=== PATIENT | female | born 1995 | race African-American/Black ===

== ENCOUNTER 2016-04-09 11:13 | Emergency (ER) | payer OTHER ==
[~2016-04-09] VITALS: Ht 160 cm; Wt 68.0 kg
[~2016-04-09 11:13] MED LIST: MACR100C2 PO
[2016-04-09 11:15] VITALS: BP 100/57; PULSE 70; RESP 16; TEMP 98; O2SAT 100
[2016-04-09 11:46] LABS: BACTERIA, URINE MANY /hpf; BLOOD, URINE TRACE (NEG); COMMENT (UR) CULTURE INDICATED; CULTURE IF INDICATED CULTURE INDICATED; GLUCOSE,URINE NEG (NEG); KETONE, URINE NEG (NEG); MUCUS URINE MOD /lpf (OCC); PH, URINE 5.5 (5.0-8.5); RENAL EPITHELIAL CELLS <1 /hpf; SQUAMOUS EPITHELIAL CELL URINE 4 /hpf (0-5); TRANSITIONAL EPI CELLS, URINE <1 /hpf; URINE COLOR YELLOW (YELLW/STRAW)
[2016-04-09 11:47] LABS: NITRITE,URINE POS (NEG)
[2016-04-09] MEDS ORDERED: MACR100C2 PO (12:12)
--- NOTE | 2016-04-09 12:13 | PD ---
HPI Chief Complaint: Complaint Time Seen by Provider: 11:36 Travel History International Travel<30 days: No Contact w/Intl Traveler<30days: No Traveled to known affect area: No History of Present Illness HPI Patient is a 21 year old female who comes in complaining of dysuria, frequency and urgency. She says her urine has been cloudy and has an odor, similar to previous infections she has had. She denies any vaginal discharge or abdominal pain. She says her LMP was Dec 16. She denies nausea or vomiting. She denies fever or chills. PFS Past Medical History Diminished Hearing: No Immunizations Current: Yes Tetanus Vaccination: Unknown Influenza Vaccination: No ?: Not LMP: 03/04/2016 : 0 Social History Alcohol Use: No Tobacco Use: No Substance Use: No Allergies-Medications (Allergen,Severity, Reaction): Coded Allergies: No Known Allergies (Verified , 04/09/16) Reported Meds & Prescriptions Reported Meds & Active Scripts Active Macrobid (Nitrofurantoin Monoh/Nitrofur Macro) 100 Mg Cap 100 Mg PO BID 7 Days Macrobid (Nitrofurantoin Monoh/Nitrofur Macro) 100 Mg Cap 100 Mg PO BID 5 Days Review of Systems Except as stated in HPI: all other systems reviewed are Neg General / Constitutional: No: Fever, Chills HENT: No: Headaches, Lightheadedness Cardiovascular: No: Chest Pain or Discomfort Respiratory: No: Shortness of Breath Gastrointestinal: No: Nausea, Vomiting, Abdominal Pain Genitourinary: No: Urgency, Frequency, Dysuria, Flank Pain, Discharge Musculoskeletal: No: Myalgias, Arthralgias Neurologic: No: Weakness, Dizziness Physical Exam Narrative GENERAL: Awake and alert in no acute distress. SKIN: Warm and dry. HEAD: Atraumatic. Normocephalic. EYES: Pupils equal and round. No scleral icterus. ENT: Mucous membranes pink and moist. NECK: Trachea midline. No JVD. CARDIOVASCULAR: Regular rate and rhythm. No murmur appreciated. RESPIRATORY: No accessory muscle use. Clear to auscultation. Breath sounds equal bilaterally. GASTROINTESTINAL: Abdomen soft, non-tender, nondistended. No CVA tenderness. NEUROLOGICAL: Awake and alert. No obvious cranial nerve deficits. Motor grossly within normal limits. Normal speech. PSYCHIATRIC: Appropriate mood and affect; insight and judgment normal. Data Data Last Documented VS Vital Signs Date Time Temp Pulse Resp B/P Pulse Ox O2 Delivery O2 Flow Rate FiO2 04/09/16 11:37 16 04/09/16 11:15 98.0 70 100/57 100 Room Air Orders Urinalysis - C+S If Indicated (04/09/16 11:20) Ed Urine Pregnancytest Poc (04/09/16 11:27) Urine Culture (04/09/16 11:25) Labs Laboratory Tests Test 04/09/16 11:25 Urine Color YELLOW Urine Turbidity HAZY Urine pH 5.5 Urine Specific [place] 1.015 Urine Protein TRACE mg/dL Urine Glucose (UA) NEG mg/dL Urine Ketones NEG mg/dL Urine Occult Blood TRACE Urine Nitrite POS Urine Bilirubin NEG Urine Urobilinogen LESS THAN 2.0 MG/DL Urine Leukocyte Esterase LARGE Urine RBC 20 /hpf Urine WBC /hpf Urine WBC Clumps RARE Urine Squamous Epithelial 4 /hpf Cells Urine Transitional Epithelial <1 /hpf Cells Urine Renal Epithelial Cells <1 /hpf Urine Bacteria MANY /hpf Urine Mucus MOD /lpf Microscopic Urinalysis Comment CULTURE INDICATED MDM Medical Decision Making Medical Screen Exam Complete: Yes Emergency Medical Condition: Yes Differential Diagnosis UTI versus pyelonephritis versus urethritis Narrative Course Patient is a 21-year-old female comes in complaining of dysuria, urgency, frequency. She has not had any discharge or abdominal pain. Urine test here is positive. Exam shows no acute abnormalities. Urinalysis positive for infection. We will give her a prescription for Macrobid. Advised to take all of the antibiotic. Advised follow-up with OB. Advised to return to the ED as needed for any worsening symptoms. Diagnosis Primary Impression: UTI (urinary tract infection) Qualified Code: N30.00 - Acute cystitis without hematuria Patient Instructions: General Instructions, Urinary Tract Infection in (ED) Additional Instructions: Follow up with OB. Return to the ED as needed for any worsening symptoms. Scripts Nitrofurantoin Monohydrate Macrocrystals (Macrobid)100 Mg [id number] Mg PO BID 7 Days Ref 0 Prov:Tammy Smith MD 04/09/16 Disposition: 01 DISCHARGE HOME Condition: Stable Tammy Smith MD Apr 09, 2016 12:13
== END 2016-04-09 12:58 | disposition home or self-care (01) ==
LOC: NEPA 11:13
DX: N39.0 Urinary tract infection, site not specified (principal); B96.20 Unspecified Escherichia coli [E. coli] as the cause of diseases classified elsewhere
CPT/HCPCS: 81001; 84703; 87077; 87086; 87186; 99283

== ENCOUNTER 2017-02-25 10:28 | Emergency (ER) | payer SELFPAY ==
[~2017-02-25] VITALS: Ht 160 cm; Wt 57.0 kg
[2017-02-25 10:29] VITALS: BP 133/62; PULSE 81; RESP 14; TEMP 98; O2SAT 99
--- NOTE | 2017-02-25 10:45 | PD ---
HPI Chief Complaint: Complaint Time Seen by Provider: 10:40 Travel History International Travel<30 days: No Contact w/Intl Traveler<30days: No Traveled to known affect area: No History of Present Illness HPI Patient is a 22-year-old female who presents to emergency room for evaluation of possible UTI. Patient reports that she has noticed cloudy urine with dysuria for the past few days. Patient reports that she thought that her symptoms would improve but didn't. Denies fever/chills. Denies n/v. Denies abdominal pain. Denies vaginal discharge/bleeding. Patient with no other complaints at this time [facility] Past Medical History Medical History: Denies Significant Hx Diminished Hearing: No Immunizations Current: Yes ?: Not LMP: 02/25/17 : 0 Past Surgical History Surgical History: No Previous Surgery Social History Alcohol Use: No Tobacco Use: No Substance Use: No Allergies-Medications (Allergen,Severity, Reaction): Coded Allergies: No Known Allergies (Verified , 04/09/16) Reported Meds & Prescriptions Reported Meds & Active Scripts Active Macrobid (Nitrofurantoin Monoh/Nitrofur Macro) 100 Mg Cap 100 Mg PO BID 7 Days Macrobid (Nitrofurantoin Monoh/Nitrofur Macro) 100 Mg Cap 100 Mg PO BID 5 Days Review of Systems General / Constitutional: No: Fever Eyes: No: Visual changes HENT: No: Headaches Cardiovascular: No: Chest Pain or Discomfort Respiratory: No: Shortness of Breath Gastrointestinal: No: Abdominal Pain Genitourinary: Positive: Urgency, Frequency, Dysuria, No: Pelvic Pain, Discharge, Dysmenorrhea, Vaginal Bleeding Musculoskeletal: No: Pain Skin: No Rash Neurologic: No: Weakness Psychiatric: No: Depression Endocrine: No: Polydipsia Hematologic/Lymphatic: No: Easy Bruising Physical Exam Narrative GENERAL: Well-nourished, well-developed patient. SKIN: Focused skin assessment warm/dry. HEAD: Normocephalic. EYES: No scleral icterus. No injection or drainage. NECK: Supple, trachea midline. No JVD or lymphadenopathy. CARDIOVASCULAR: Regular rate and rhythm without murmurs, gallops, or rubs. RESPIRATORY: Breath sounds equal bilaterally. No accessory muscle use. GASTROINTESTINAL: Abdomen soft, non-tender, nondistended. MUSCULOSKELETAL: No cyanosis, or edema. BACK: Nontender without obvious deformity. No CVA tenderness. Data Data Last Documented VS Vital Signs Date Time Temp Pulse Resp B/P (MAP) Pulse Ox O2 Delivery O2 Flow Rate FiO2 02/25/17 11:00 16 02/25/17 10:29 98.0 81 133/62 (85) 99 Orders Orders Urinalysis - C+S If Indicated (02/25/17 10:37) Ed Urine Pregnancytest Poc (02/25/17 10:37) Urine Culture (02/25/17 10:50) Lidocaine 1% Inj (50 Ml) (Xylocaine 1% I (02/25/17 12:00) Ceftriaxone Inj (Rocephin Inj) (02/25/17 12:00) Labs Laboratory Tests Test 02/25/17 10:50 Urine Color LIGHT-YELLOW Urine Turbidity HAZY Urine pH 6.5 Urine Specific [place] 1.007 Urine Protein 30 mg/dL Urine Glucose (UA) NEG mg/dL Urine Ketones NEG mg/dL Urine Occult Blood LARGE Urine Nitrite NEG Urine Bilirubin NEG Urine Urobilinogen LESS THAN 2.0 MG/DL Urine Leukocyte Esterase LARGE Urine RBC 7 /hpf Urine WBC /hpf Urine WBC Clumps FEW Urine Squamous Epithelial Cells 2 /hpf Urine Bacteria FEW /hpf Microscopic Urinalysis Comment CULTURE INDICATED MDM Medical Decision Making Medical Screen Exam Complete: Yes Emergency Medical Condition: Yes Medical Record Reviewed: Yes Interpretation(s) Vital Signs Date Time Temp Pulse Resp B/P (MAP) Pulse Ox O2 Delivery O2 Flow Rate FiO2 02/25/17 10:29 98.0 81 14 133/62 (85) 99 Differential Diagnosis UTI, cervicitis Narrative Course 22 year old female who presents to the ER with complaints of dysuria with urinary urgency and frequency for the past few days. Patient with no other c/o besides this. UA sent to evaluate for possible UTI. Vital Signs Date Time Temp Pulse Resp B/P (MAP) Pulse Ox O2 Delivery O2 Flow Rate FiO2 02/25/17 10:29 98.0 81 14 133/62 (85) 99 Laboratory Tests Test 02/25/17 10:50 Urine Color LIGHT-YELLOW (YELLW/STRAW) Urine Turbidity HAZY (CLEAR) Urine pH 6.5 (5.0-8.5) Urine Specific [place] 1.007 (1.002-1.035) Urine Protein 30 mg/dL (NEG-TRACE) Urine Glucose (UA) NEG mg/dL (NEG) Urine Ketones NEG mg/dL (NEG) Urine Occult Blood LARGE (NEG) Urine Nitrite NEG (NEG) Urine Bilirubin NEG (NEG) Urine Urobilinogen LESS THAN 2.0 MG/DL (LESS Urine Leukocyte Esterase LARGE (NEG) Urine RBC 7 /hpf (0-3) Urine WBC /hpf (0-5) Urine WBC Clumps FEW (NONE) Urine Squamous Epithelial Cells 2 /hpf (0-5) Urine Bacteria FEW /hpf (NONE) Microscopic Urinalysis Comment CULTURE INDICATED Patient with leuk esterase and wbc clubs in urine, patient with symptomatic UTI. Plant to treat with dose of IM rocephin and will discharge home with script for macrobid. Patient will follow up with cultures from today and will return to ER as needed Diagnosis Primary Impression: UTI (urinary tract infection) Qualified Codes: N30.01 - Acute cystitis with hematuria Patient Instructions: General Instructions Additional Instructions: Please take all medications as prescribed Please follow up with your primary care doctor in 2-3 days Return to the ER if symptoms worsen or progress Return to the ER as needed Please follow-up with all cultures from today Med/Other Pt SpecificInfo: Prescription(s) given Scripts Nitrofurantoin Monohydrate Macrocrystals (Macrobid) 100 Mg Cap 100 MG PO BID for Infection for 10 Days, #20 CAP 0 Refills Prov: Mackenzie Partida DO 02/25/17 Disposition: 01 DISCHARGE HOME Condition: Stable Mackenzie Partida DO Feb 25, 2017 10:45
[2017-02-25 11:24] LABS: BACTERIA, URINE FEW /hpf; BLOOD, URINE LARGE (NEG); GLUCOSE,URINE NEG (NEG); KETONE, URINE NEG (NEG); NITRITE,URINE NEG (NEG); PH, URINE 6.5 (5.0-8.5); SQUAMOUS EPITHELIAL CELL URINE 2 /hpf (0-5); URINE COLOR LIGHT-YELLOW (YELLW/STRAW)
[2017-02-25 11:40] LABS: COMMENT (UR) CULTURE INDICATED; CULTURE IF INDICATED CULTURE INDICATED
[2017-02-25] MEDS ORDERED: MACR100C2 PO (11:55)
[2017-02-25] MEDS ORDERED: LIDOCAINE HCL 1% 50 ML VIAL IM ONE (12:00)
== END 2017-02-25 12:33 | disposition home or self-care (01) ==
LOC: NEPD 10:28
DX: N30.01 Acute cystitis with hematuria (principal); B96.20 Unspecified Escherichia coli [E. coli] as the cause of diseases classified elsewhere; B96.89 Other specified bacterial agents as the cause of diseases classified elsewhere
CPT/HCPCS: 81001; 84703; 87077; 87086; 87186; 96372; 99284; J0696